=== PATIENT | male | born 1945 | race Caucasian/White ===

== ENCOUNTER → 2021-03-27 | Outpatient (CLI) | payer MEDICARE | LOC: KOH-I 10:41 | DX: R80.9 Proteinuria, unspecified (principal); N28.1 Cyst of kidney, acquired | CPT/HCPCS: 76775 ==

== ENCOUNTER → 2021-07-01 | Outpatient (CLI) | payer MEDICARE | LOC: EXRD 10:05 | DX: K76.0 Fatty (change of) liver, not elsewhere classified (principal); Q61.02 Congenital multiple renal cysts | CPT/HCPCS: 76705 ==